=== PATIENT | male | born 1965 | race American Indian/Alaskan Native ===

== ENCOUNTER 2020-06-24 13:27 | Inpatient (IN) | payer MEDICARE ==
--- NOTE | 2020-06-24 13:40 | Emergency Department Report ---
Blank Doc - Documentation Documentation: 55-year-old male past no history hypertension treatment department complaining of onset of left facial weakness and speech difficulty and right hand weakness that started last night around 11 PM and continues at present. No loss of consciousness no syncope no fevers chills or sweats This initial assessment/diagnostic orders/clinical plan/treatment(s) is/are subject to change based on patients health status, clinical progression and re- assessment by fellow clinical providers in the ED. Further treatment and workup at subsequent clinical providers discretion. Patient/guardian urged not to elope from the ED as their condition may be serious if not clinically assessed and managed. Initial orders include: Consulted with the my attending Dr. Bobo Suarez plan will call code stroke
--- NOTE | 2020-06-24 14:05 | Emergency Department Report ---
ED Neuro Deficit HPI - General Chief Complaint: Neuro Symptoms/Deficit Stated Complaint: HBP/MED REFILL Time Seen by Provider: 06/24/20 13:52 Source: patient Mode of arrival: Ambulatory Limitations: No Limitations - History of Present Illness Initial Comments: [facility] Date of Service: 06/24/2020 13:43:24 Impression: I61.0 - Intracerebral hemorrhage in hemisphere, subcortical Comments/Sign-Out: mild right hand weakness - CT head shows L subcortical hemorrhage. Likely from hypertension. Recommend BP <140/90, neurosurgery consult, and stopping all antithrombotics. Metrics: Last Known Well: 06/23/2020 23:00:00 [facility] Notification Time: 06/24/2020 13:42:56 Arrival Time: 06/24/2020 13:27:00 Stamp Time: 06/24/2020 13:43:24 Time First Login Attempt: 06/24/2020 13:50:54 Video Start Time: 06/24/2020 13:50:54 Symptoms: right arm weakness NIHSS Start Assessment Time: 06/24/2020 13:59:15 Patient is not a candidate for Alteplase/Activase. Patient was not deemed candidate for Alteplase/Activase thrombolytics because of Current or Previous ICH. Video End Time: 06/24/2020 14:03:22 CT head was reviewed and results were: L periventricular white matter hemorrhage. Clinical Presentation is not Suggestive of Large Vessel Occlusive Disease ED Physician notified of diagnostic impression and management plan on 06/24/2020 14:03:22 Our recommendations are outlined below. Recommendations: Activate Stroke Protocol Admission/Order Set Stroke/Telemetry Floor Neuro Checks Bedside Swallow Eval DVT Prophylaxis IV Fluids, Normal Saline Head of Bed 30 Degrees Euglycemia and Avoid Hyperthermia (PRN Acetaminophen) Hold Antithrombotics for Now Routine Consultation with Inhouse Neurology for Follow up Care Sign Out: Discussed with Emergency Department Provider History of Present Illness: Patient was brought by private transportation with symptoms of right arm weakness Mr. Posada is a 55 year old man noted that he was dropping things when he woke up this am. He last felt normal at approx 2300 before bed. He endorses taking eliquis. No hx of stroke/KS. No weakness of his right arm. No slurred speech. No vision changes. Past Medical History: Hypertension There is NO history of Coronary Artery Disease There is NO history of Stroke Anticoagulant use: eliquis Antiplatelet use: No Examination: BP(214/120), Pulse(87), Blood Glucose(97) 1A: Level of Consciousness - Alert; keenly responsive + 0 1B: Ask Month and Age - Both Questions Right + 0 1C: Blink Eyes & Squeeze Hands - Performs Both Tasks + 0 2: Test Horizontal Extraocular Movements - Normal + 0 3: Test Visual Napier - No Visual Loss + 0 4: Test Facial Palsy (Use Grimace if Obtunded) - Minor paralysis (flat nasolabial fold, smile asymmetry) + 1 5A: Test Left Arm Motor Drift - No Drift for 10 Seconds + 0 5B: Test Right Arm Motor Drift - No Drift for 10 Seconds + 0 6A: Test Left Leg Motor Drift - No Drift for 5 Seconds + 0 6B: Test Right Leg Motor Drift - No Drift for 5 Seconds + 0 7: Test Limb Ataxia (FNF/Heel-Fischer) - No Ataxia + 0 8: Test Sensation - Normal; No sensory loss + 0 9: Test Language/Aphasia - Normal; No aphasia + 0 10: Test Dysarthria - Normal + 0 11: Test Extinction/Inattention - No abnormality + 0 NIHSS Score: 1 Pre-Morbid Modified Ranking Scale: 0 Points = No symptoms at all Patient/Family was informed the Neurology Consult would happen via TeleHealth consult by way of interactive audio and video telecommunications and consented to receiving care in this manner. Due to the immediate potential for life-threatening deterioration due to underlying acute neurologic illness, I spent 20 minutes providing critical care. This time includes time for face to face visit via telemedicine, review of med ical records, imaging studies and discussion of findings with providers, the patient and/or family. Dr Mairo Nguyen [facility] Case [id number] ED Review of Systems ROS: Stated complaint: HBP/MED REFILL Other details as noted in HPI ED Past Medical Hx - Past Medical History Previous Medical History?: Yes Hx Hypertension: Yes - Surgical History Past Surgical History?: No - Social History Smoking Status: Current Every Day Smoker ED Neuro Physical Exam - General Limitations: No Limitations Suspected Stroke: Yes - NIHSS Assessment Interval: Baseline 1a. Level of Consciousness: alert/keenly responsive 1b. LOC Questions: answers both correctly 1c. LOC Commands: performs tasks correctly 2. Best Gaze: normal 3. Visual: no visual loss 4. Facial Palsy: minor paralysis 5b. Motor Arm Right: no drift 5a. Motor Arm Left: no drift 6a. Motor Leg Left: no drift 6b. Motor Leg Right: no drift 7. Limb Ataxia: absent 8. Sensory: normal 9. Best Language: no aphasia 10. Dysarthria: normal 11. Extinction/Inattention: no abnormality Total Score: 1 Stroke Severity: Minor Stroke ED Course Vital Signs 06/24/20 06/24/20 13:40 14:02 Temperature 98.3 F Pulse Rate 91 H 94 H Respiratory 20 17 Rate Blood Pressure 175/109 Blood Pressure 207/121 [Left] O2 Sat by Pulse 95 Oximetry - Lab Data Lab Results 06/24/20 Range/Units 13:41 POC Glucose 97 (70-105) mg/dL Critical care attestation.: If time is entered above; I have spent that time in minutes in the direct care of this critically ill patient, excluding procedure time. ED Disposition Clinical Impression: Right arm weakness Disposition: OP ADMIT IP TO THIS HOSP Is pt being admited?: Yes Condition: Stable
[2020-06-24] MEDS ORDERED: niCARdipine DRIP 40 MG/200 ML BAG IV ONE (14:13)
[2020-06-24] MEDS ORDERED: levETIRAcetam 1000 MG/NS 0.75% 1,000 MG/100 ML BAG IV ONE (14:13)
--- NOTE | 2020-06-24 14:15 | Cat Scan Report ---
CT HEAD WITHOUT CONTRAST INDICATION / CLINICAL INFORMATION: Code stroke. Right sided weakness, started 11PM TECHNIQUE: All CT scans at this location are performed using CT dose reduction for ALARA by means of automated e xposure control. COMPARISON: None available. FINDINGS: HEMORRHAGE: There is a hyperdense collection in the region of the left basal ganglia/external capsule which measures 2.9 x 1.7 x 2.9 cm in AP, transverse, and craniocaudal dimensions. There is mild surr ounding parenchymal edema. EXTRA-AXIAL SPACES: Normal in size and morphology for the patient's age. VENTRICULAR SYSTEM: Normal in size and morphology for the patient's age. CEREBRAL PARENCHYMA: No significant abnormality. No acute territorial infarct. MIDLINE SHIFT OR HERNIATION: None. CEREBELLUM / BRAINSTEM: No significant abnormality. ORBITS: Normal as visualized. SOFT TISSUES of HEAD: No significant abnormality. CALVARIUM: No significant abnormality. PARANASAL SINUSES / MASTOID AIR CELLS: Normal as visualized. ADDITIONAL FINDINGS: None. IMPRESSION: 1. Acute left basal ganglia/external capsule hemorrhage, likely hypertensive in etiology. Neurology/n eurosurgical consultation is recommended. CRITICAL RESULT: Acute left basal ganglia/external capsule hemorrhage Time of Discovery (TANK CLEANER/CDT): 1:00 PM Time of Communication (TANK CLEANER/CDT): 1:09 PM Licensed Practitioner Receiving Report: HORACIO Nowak Read Back Performed: Yes. Signer Name: Rodrigo Kohler MD Signed: 06/24/2020 2:10 PM Workstation Name: [id number]
--- NOTE | 2020-06-24 14:33 | Emergency Department Report ---
ED Neuro Deficit HPI - General Chief Complaint: Neuro Symptoms/Deficit Stated Complaint: HBP/MED REFILL Time Seen by Provider: 06/24/20 13:52 Source: patient Mode of arrival: Ambulatory Limitations: No Limitations - History of Present Illness Initial Comments: Patient is a 55-year-old F [place] male with a past medical history of hypertension who is presenting with initially need to have his blood pressure medicines refilled. During the initial assessment patient states that he has been having some mild difficulty with finding words since last night approximate 11:00. States that he is dropped several things out of his right hand as well. The MEHNAZ doing the screening exam noticed mild facial droop. Patient states that he ran out of his hydrochlorothiazide approximately 3 weeks ago and called for refill but was told he had no refills left and will need to see a physician. Because physician's office but only spoke with the nurse and was unable to get a refill at that time. Patient denies any chest pain shortness of breath headache nausea vomiting diarrhea. States he is on no blood thinners. - Related Data Allergies/Adverse Reactions: Allergies Allergy/AdvReac Type Severity Reaction Status Date / Time No Known Allergies Allergy Unverified 06/24/20 14:07 ED Review of Systems ROS: Stated complaint: HBP/MED REFILL Other details as noted in HPI Comment: All other systems reviewed and negative ED Past Medical Hx - Past Medical History Previous Medical History?: Yes Hx Hypertension: Yes - Surgical History Past Surgical History?: No - Social History Smoking Status: Current Every Day Smoker ED Neuro Physical Exam - General Limitations: No Limitations General appearance: alert, in no apparent distress Suspected Stroke: Yes - Head Head exam: Present: atraumatic, normocephalic - Eye Eye exam: Present: normal appearance, PERRL, EOMI - ENT ENT exam: Present: mucous membranes moist - Neck Neck exam: Present: normal inspection - Respiratory Respiratory exam: Present: normal lung sounds bilaterally. Absent: respiratory distress, wheezes, rales, rhonchi - Cardiovascular Cardiovascular Exam: Present: regular rate, normal rhythm, normal heart sounds. Absent: irregular rhythm, systolic murmur, diastolic murmur, rubs, gallop - GI/Abdominal GI/Abdominal exam: Present: soft, normal bowel sounds. Absent: distended, tenderness, guarding, rebound - Rectal Rectal exam: Present: deferred - Extremities Exam Extremities exam: Present: normal inspection - Back Exam Back exam: Present: normal inspection - Neurological Exam Neurological exam: Present: alert, oriented X3, normal gait, motor sensory deficit - NIHSS Assessment Interval: Baseline 1a. Level of Consciousness: alert/keenly responsive 1b. LOC Questions: answers both correctly 1c. LOC Commands: performs tasks correctly 2. Best Gaze: normal 3. Visual: no visual loss 4. Facial Palsy: minor paralysis (left) 5b. Motor Arm Right: drift 5a. Motor Arm Left: no drift 6a. Motor Leg Left: no drift 6b. Motor Leg Right: no drift 7. Limb Ataxia: absent 8. Sensory: normal 9. Best Language: mild/moderate aphasia 10. Dysarthria: normal 11. Extinction/Inattention: no abnormality Total Score: 3 Stroke Severity: Minor Stroke - Psychiatric Psychiatric exam: Present: normal affect, normal mood - Skin Skin exam: Present: warm, dry, intact, normal color. Absent: rash ED Course Vital Signs 06/24/20 06/24/20 06/24/20 13:40 14:02 14:09 Temperature 98.3 F Pulse Rate 91 H 94 H Respiratory 20 17 Rate Blood Pressure 175/109 207/121 Blood Pressure 207/121 [Left] O2 Sat by Pulse 95 Oximetry 06/24/20 06/24/20 06/24/20 14:17 14:28 14:32 Temperature Pulse Rate 75 72 70 Respiratory 16 18 11 L Rate Blood Pressure Blood Pressure 143/91 172/107 175/129 [Left] O2 Sat by Pulse 95 96 97 Oximetry 06/24/20 06/24/20 06/24/20 14:34 14:45 15:00 Temperature Pulse Rate 71 70 65 Respiratory 8 L 17 16 Rate Blood Pressure 165/90 165/90 Blood Pressure [Left] O2 Sat by Pulse 96 96 96 Oximetry 06/24/20 15:09 Temperature Pulse Rate 69 Respiratory Rate Blood Pressure Blood Pressure 136/97 [Left] O2 Sat by Pulse Oximetry - Reevaluation(s) Reevaluation #1: 06/24/20 14:[address] Mccain with neurosurgery. He was able to review the CT scan himself. Dr. Carroll states that the patient could be treated here with an blood pressure control. Does not feel as though surgical intervention is needed at this time. We will obtain a 4-hour repeat CT. Patient was to have aggressive blood pressure control to get his blood pressure under 140 systolic. Patient given a gram of Keppra as well. Dr. Carroll states he will see the patient in house today. Dr. Mendez with the ICU has been consulted as well and will see the patient. At this time we are waiting for laboratory studies to be resulted so that patient can be admitted to the hospitalist service. - Lab Data Result diagrams: 06/24/20 14:07 06/24/20 14:14 Lab Results 06/24/20 06/24/20 06/24/20 Range/Units 13:41 14:07 14:07 WBC 6.0 (4.5-11.0) K/mm3 RBC 4.87 (3.65-5.03) M/mm3 Hgb 13.0 (11.8-15.2) gm/dl Hct 40.0 (35.5-45.6) % MCV 82 L (84-94) fl MCH 27 L (28-32) pg MCHC 33 (32-34) % RDW 15.1 (13.2-15.2) % Plt Count 315 (140-440) K/mm3 Lymph % (Auto) 39.1 H (13.4-35.0) % [place] % (Auto) 6.5 (0.0-7.3) % Eos % (Auto) 0.7 (0.0-4.3) % Baso % (Auto) 0.5 (0.0-1.8) % Lymph # (Auto) 2.4 (1.2-5.4) K/mm3 [place] # (Auto) 0.4 (0.0-0.8) K/mm3 Eos # (Auto) 0.0 (0.0-0.4) K/mm3 Baso # (Auto) 0.0 (0.0-0.1) K/mm3 Seg Neutrophils % 53.2 (40.0-70.0) % Seg Neutrophils # 3.2 (1.8-7.7) K/mm3 Sodium (137-145) mmol/L Potassium (3.6-5.0) mmol/L Chloride (98-107) mmol/L Carbon Dioxide (22-30) mmol/L Anion Gap mmol/L BUN (9-20) mg/dL Creatinine (0.8-1.3) mg/dL Estimated GFR ml/min BUN/Creatinine Ratio % Glucose (75-100) mg/dL POC Glucose 97 (70-105) mg/dL Calcium (8.4-10.2) mg/dL Total Bilirubin (0.1-1.2) mg/dL AST (5-40) units/L ALT (7-56) units/L Alkaline Phosphatase (35-129) units/L Total Creatine Kinase 248 H (55-170) units/L CK-MB (CK-2) 3.4 (0.0-4.0) ng/mL CK-MB (CK-2) Rel Index 1.3 (0-4) Troponin T < 0.010 (0.00-0.029) ng/mL Total Protein (6.3-8.2) g/dL Albumin (3.9-5) g/dL Albumin/Globulin Ratio % 12/19/20 Range/Units 14:14 WBC (4.5-11.0) K/mm3 RBC (3.65-5.03) M/mm3 Hgb (11.8-15.2) gm/dl Hct (35.5-45.6) % MCV (84-94) fl MCH (28-32) pg MCHC (32-34) % RDW (13.2-15.2) % Plt Count (140-440) K/mm3 Lymph % (Auto) (13.4-35.0) % [place] % (Auto) (0.0-7.3) % Eos % (Auto) (0.0-4.3) % Baso % (Auto) (0.0-1.8) % Lymph # (Auto) (1.2-5.4) K/mm3 [place] # (Auto) (0.0-0.8) K/mm3 Eos # (Auto) (0.0-0.4) K/mm3 Baso # (Auto) (0.0-0.1) K/mm3 Seg Neutrophils % (40.0-70.0) % Seg Neutrophils # (1.8-7.7) K/mm3 Sodium 137 (137-145) mmol/L Potassium 3.6 (3.6-5.0) mmol/L Chloride 101.7 (98-107) mmol/L Carbon Dioxide 28 (22-30) mmol/L Anion Gap 11 mmol/L BUN 11 (9-20) mg/dL Creatinine 1.3 (0.8-1.3) mg/dL Estimated GFR 58 ml/min BUN/Creatinine Ratio 8 % Glucose 102 H (75-100) mg/dL POC Glucose (70-105) mg/dL Calcium 9.3 (8.4-10.2) mg/dL Total Bilirubin 0.40 (0.1-1.2) mg/dL AST 18 (5-40) units/L ALT 20 (7-56) units/L Alkaline Phosphatase 39 (35-129) units/L Total Creatine Kinase (55-170) units/L CK-MB (CK-2) (0.0-4.0) ng/mL CK-MB (CK-2) Rel Index (0-4) Troponin T (0.00-0.029) ng/mL Total Protein 8.1 (6.3-8.2) g/dL Albumin 4.1 (3.9-5) g/dL Albumin/Globulin Ratio 1.0 % - EKG Data -: EKG Interpreted by Ia EKG shows normal: sinus rhythm, axis, intervals, QRS complexes, ST-T waves Rate: normal Interpretation: [facility] - Radiology Data CT HEAD WITHOUT CONTRAST INDICATION / CLINICAL INFORMATION: Code stroke. Right sided weakness, started 11PM TECHNIQUE: All CT scans at this location are performed using CT dose reduction for ALARA by means of automated exposure control. COMPARISON: None available. FINDINGS: HEMORRHAGE: There is a hyperdense collection in the region of the left basal ganglia/external capsule which measures 2.9 x 1.7 x 2.9 cm in AP, transverse, and craniocaudal dimensions. There is mild surrounding parenchymal edema. EXTRA-AXIAL SPACES: Normal in size and morphology for the patient's age. VENTRICULAR SYSTEM: Normal in size and morphology for the patient's age. CEREBRAL PARENCHYMA: No significant abnormality. No acute territorial infarct. MIDLINE SHIFT OR HERNIATION: None. CEREBELLUM / BRAINSTEM: No significant abnormality. ORBITS: Normal as visualized. SOFT TISSUES of HEAD: No significant abnormality. CALVARIUM: No significant abnormality. PARANASAL SINUSES / MASTOID AIR CELLS: Normal as visualized. ADDITIONAL FINDINGS: None. IMPRESSION: 1. Acute left basal ganglia/external capsule hemorrhage, likely hypertensive in etiology. Neurology/neurosurgical consultation is recommended. CRITICAL RESULT: Acute left basal ganglia/external capsule hemorrhage Time of Discovery (ANESTHESIA TECH/CDT): 1:00 PM Time of Communication (ANESTHESIA TECH/CDT): 1:09 PM Licensed Practitioner Receiving Report: HORACIO Nowak Read Back Performed: Yes. Signer Name: Rodrigo Kohler MD Signed: 06/24/2020 2:10 PM Workstation Name: [id number] Critical Care Time: Yes (3.) Critical care attestation.: If time is entered above; I have spent that time in minutes in the direct care of this critically ill patient, excluding procedure time. ED Disposition Clinical Impression: Right arm weakness, Basal ganglia hemorrhage, Hypertensive emergency Disposition: DC-09 OP ADMIT IP TO THIS HOSP Is pt being admited?: Yes Does the pt Need Aspirin: No Condition: Critical Instructions: Hypertension (ED) Time of Disposition: 15:12
[2020-06-24 14:34] LABS: Basophils % (Auto) 0.5 % (0.0-1.8); Eosinophils % (Auto) 0.7 % (0.0-4.3); Lymphocytes # (Auto) 2.4 K/mm3 (1.2-5.4); Lymphocytes % (Auto) 39.1 % (13.4-35.0); Mean Corpuscular HGB Conc 33 % (32-34); Mean Corpuscular Volume 82 fl (84-94); Monocytes # (Auto) 0.4 K/mm3 (0.0-0.8); Monocytes % (Auto) 6.5 % (0.0-7.3); Platelet Count 315 K/mm3 (140-440); Red Blood Count 4.87 M/mm3 (3.65-5.03); Red Cell Distribution Width 15.1 % (13.2-15.2)
--- NOTE | 2020-06-24 14:54 | XRay Report ---
CHEST 1 VIEW 06/24/2020 1:42 PM INDICATION / CLINICAL INFORMATION: hypertensive emergency. COMPARISON: None available. FINDINGS: SUPPORT DEVICES: None. HEART / MEDIASTINUM: Borderline cardiomegaly. LUNGS / PLEURA: No significant pulmonary or pleural abnormality. No pneumothorax. ADDITIONAL FINDINGS: No significant additional findings. IMPRESSION: No acute cardiopulmonary abnormality. Borderline cardiomegaly. Signer Name: Rodrigo Kohler MD Signed: 06/24/2020 2:49 PM Workstation Name: [id number]
[2020-06-24 15:00] LABS: Creatine Kinase MB 3.4 ng/mL (0.0-4.0)
[2020-06-24 15:02] LABS: Albumin 4.1 g/dL (3.9-5); Calcium 9.3 mg/dL (8.4-10.2)
[2020-06-24 15:10] LABS: INR 0.95 (0.87-1.13)
[2020-06-24 15:12] LABS: Partial Thromboplastin Time 27.3 Sec. (24.2-36.6); Thrombin Time 16.6 Sec. (15.1-19.6)
--- NOTE | 2020-06-24 18:23 | Cat Scan Report ---
CT head/brain wo con INDICATION: Intracranial hemorrhage. TECHNIQUE: CT head without contrast. All CT scans at this location are performed using CT dose reduction for ALA RA by means of automated exposure control. COMPARISON: Head CT done earlier on 06/24/2020 FINDINGS: There has been no appreciable change in the 2.9 cm left putaminal hemorrhage since the prior study wi th surrounding edema. There is unchanged mild local mass effect with effacement of the left lateral v entricle but no significant midline shift or herniation. There is no other acute abnormality. IMPRESSION: 1. Unchanged left putaminal hemorrhage. Signer Name: Trevor Schwarz MD Signed: 06/24/2020 6:18 PM Workstation Name: [id number]
--- NOTE | 2020-06-24 23:25 | History and Physical Report ---
History of Present Illness Date of examination: 06/24/20 Date of admission: 06/24/20 15:15 Chief complaint: Right hand weakness History of present illness: 55-year-old -Malawian male with past 5 history of hypertension and noncompliant with medication comes to the emergency room for filling up the blood pressure medications. During the examination by ED physician-it was noticed that there is a mild facial droop and was dropping several things of out of the right hand. Because of suspicion of stroke or CAT scan was done which showed a very small bleed. Patient blood pressure was also very high in the 220s by 120s. Patient was started on nicardipine drip. - Past Medical History Previous Medical History?: Yes --Hypertension: Yes - Surgical History Past Surgical History?: No - Social History Smoking Status: Current Every Day Smoker Family history Htn Review of Systems ROS: Stated complaint: HBP/MED REFILL Right facial weakness Right upper extremity weakness Otherwise review of systems was normal No headache Medications and Allergies Allergies Allergy/AdvReac Type Severity Reaction Status Date / Time No Known Allergies Allergy Verified 06/24/20 23:42 Exam - Constitutional Vitals: Temp Pulse Resp BP Pulse Ox 98.3 F 64 16 173/101 98 06/24/20 13:40 06/24/20 22:30 06/24/20 22:30 06/24/20 22:30 06/24/20 22:30 General appearance: Present: no acute distress, well-nourished - EENT Eyes: Present: PERRL ENT: hearing intact, clear oral mucosa - Neck Neck: Present: supple, normal ROM - Respiratory Respiratory effort: normal Respiratory: bilateral: CTA - Cardiovascular Heart rate: 78 Rhythm: regular Heart Sounds: Present: S1 & S2. Absent: rub, click - Extremities Extremities: no ischemia, pulses intact, pulses symmetrical, No edema Extremity abnormal: other (Slight weakness in the right hand) Peripheral Pulses: within normal limits - Abdominal General gastrointestinal: Present: soft, non-tender, non-distended, normal bowel sounds Male genitourinary: Present: normal - Rectal Rectal Exam: deferred - Integumentary Integumentary: Present: clear, warm, dry - Musculoskeletal Musculoskeletal: right sided weakness (Right hand weakness present. Power is 4 x 5 in the right upper extremity.) - Psychiatric Psychiatric: appropriate mood/affect, intact judgment & insight - Neurologic Neurologic: CNII-XII intact (Right facial droop), moves all extremities - Allied Health Allied health notes reviewed: nursing, case management HEART Score - HEART Score Troponin: Troponin T < 0.010 ng/mL (0.00-0.029) 06/24/20 14:07 Results - Labs CBC & Chem 7: 06/24/20 23:41 06/24/20 23:41 Labs: Laboratory Last Values WBC 6.0 K/mm3 (4.5-11.0) 06/24/20 14:07 RBC 4.87 M/mm3 (3.65-5.03) 06/24/20 14:07 Hgb 13.0 gm/dl (11.8-15.2) 06/24/20 14:07 Hct 40.0 % (35.5-45.6) 06/24/20 14:07 MCV 82 fl (84-94) L 06/24/20 14:07 MCH 27 pg (28-32) L 06/24/20 14:07 MCHC 33 % (32-34) 06/24/20 14:07 RDW 15.1 % (13.2-15.2) 06/24/20 14:07 Plt Count 315 K/mm3 (140-440) 06/24/20 14:07 Lymph % (Auto) 39.1 % (13.4-35.0) H 06/24/20 14:07 [place] % (Auto) 6.5 % (0.0-7.3) 06/24/20 14:07 Eos % (Auto) 0.7 % (0.0-4.3) 06/24/20 14:07 Baso % (Auto) 0.5 % (0.0-1.8) 06/24/20 14:07 Lymph # (Auto) 2.4 K/mm3 (1.2-5.4) 06/24/20 14:07 [place] # (Auto) 0.4 K/mm3 (0.0-0.8) 06/24/20 14:07 Eos # (Auto) 0.0 K/mm3 (0.0-0.4) 06/24/20 14:07 Baso # (Auto) 0.0 K/mm3 (0.0-0.1) 06/24/20 14:07 Seg Neutrophils % 53.2 % (40.0-70.0) 06/24/20 14:07 Seg Neutrophils # 3.2 K/mm3 (1.8-7.7) 06/24/20 14:07 PT 12.5 Sec. (12.2-14.9) 06/24/20 14:07 INR 0.95 (0.87-1.13) 06/24/20 14:07 APTT 27.3 Sec. (24.2-36.6) 06/24/20 14:07 Thrombin Time 16.6 Sec. (15.1-19.6) 06/24/20 14:07 Sodium 137 mmol/L (137-145) 06/24/20 14:14 Potassium 3.6 mmol/L (3.6-5.0) 06/24/20 14:14 Chloride 101.7 mmol/L (98-107) 06/24/20 14:14 Carbon Dioxide 28 mmol/L (22-30) 06/24/20 14:14 Anion Gap 11 mmol/L 06/24/20 14:14 BUN 11 mg/dL (9-20) 06/24/20 14:14 Creatinine 1.3 mg/dL (0.8-1.3) 06/24/20 14:14 Estimated GFR 58 ml/min 06/24/20 14:14 BUN/Creatinine Ratio 8 % 06/24/20 14:14 Glucose 102 mg/dL (75-100) H 06/24/20 14:14 POC Glucose 97 mg/dL (70-105) 06/24/20 13:41 Calcium 9.3 mg/dL (8.4-10.2) 06/24/20 14:14 Total Bilirubin 0.40 mg/dL (0.1-1.2) 06/24/20 14:14 AST 18 units/L (5-40) 06/24/20 14:14 ALT 20 units/L (7-56) 06/24/20 14:14 Alkaline Phosphatase 39 units/L (35-129) 06/24/20 14:14 Total Creatine Kinase 248 units/L (55-170) H 06/24/20 14:07 CK-MB (CK-2) 3.4 ng/mL (0.0-4.0) 06/24/20 14:07 CK-MB (CK-2) Rel Index 1.3 (0-4) 06/24/20 14:07 Troponin T < 0.010 ng/mL (0.00-0.029) 06/24/20 14:07 Total Protein 8.1 g/dL (6.3-8.2) 06/24/20 14:14 Albumin 4.1 g/dL (3.9-5) 06/24/20 14:14 Albumin/Globulin Ratio 1.0 % 06/24/20 14:14 Short CBC 06/24/20 06/24/20 Range/Units 14:07 23:41 WBC 6.0 5.8 (4.5-11.0) K/mm3 Hgb 13.0 12.5 (11.8-15.2) gm/dl Hct 40.0 38.3 (35.5-45.6) % Plt Count 315 308 (140-440) K/mm3 BMP 06/24/20 06/24/20 14:14 23:41 Sodium 137 135 L Potassium 3.6 4.2 Chloride 101.7 100.0 Carbon Dioxide 28 27 BUN 11 10 Creatinine 1.3 1.2 Glucose 102 H 95 Calcium 9.3 9.4 Cardiac Enzymes 06/24/20 Range/Units 14:07 Total Creatine Kinase 248 H (55-170) units/L CK-MB (CK-2) 3.4 (0.0-4.0) ng/mL Troponin T < 0.010 (0.00-0.029) ng/mL Liver Function 06/24/20 06/24/20 Range/Units 14:14 23:41 Total Bilirubin 0.40 0.40 (0.1-1.2) mg/dL AST 18 17 (5-40) units/L ALT 20 19 (7-56) units/L Alkaline Phosphatase 39 37 (35-129) units/L Albumin 4.1 4.1 (3.9-5) g/dL - Imaging and Cardiology Chest x-ray: report reviewed CT Scan - head: report reviewed Imaging and Cardiology: Head CT Acute left basal ganglia/external capsule hemorrhage likely hypertensive in etiology. Neurology/neurosurgical consultation is recommended. Hyperdense collection in the region of the left basal ganglia/external capsule which measures 2.9 X1.7X 2.9 cm in AP transverse and Craniocaudal dimensions. There is mild surrounding parenchymal edema. Chest x-ray no acute cardiopulmonary abnormality. [place]/IV: IV Catheter Type [Right INT / Saline Lock Antecubital] Assessment and Plan Assessment and plan: Critical care statement The high probability OF a clinically significant sudden or life-threatening deterioration of the cardiorespiratory system and endocrine system required my full and direct attention, intervention and postoperative management. The aggregate critical care time was 40 minutes. The time is in addition to time spent performing reported procedures but includes the followin: Data review and interpretation 2: Patient assessment and monitoring of vital signs 3: Documentation 4:: Medication orders and management Advance Directives: Yes (Full code) VTE prophylaxis?: Chemical Plan of care discussed with patient/family: Yes - Patient Problems (1) Basal ganglia hemorrhage Current Visit: Yes Status: Acute Plan to address problem: Conservative treatment for the time being Neurosurgery consult requested ED physician consulted neurosurgery--hence patient being admitted here and was not transferred Small hemorrhage-should do well with control of blood pressure (2) Hypertensive emergency Current Visit: Yes Status: Acute Plan to address problem: Patient on nicardipine drip Patient started on valsartan 1 6212, Coreg 12.5 every 12 and amlodipine 10 mg once a day We will try to wean the nicardipine drip. (3) Right arm weakness Current Visit: Yes Status: Acute Plan to address problem: Secondary to left basal ganglia hemorrhage Will get in-house neurology consult again (4) Acute CVA (cerebrovascular accident) Current Visit: Yes Status: Acute Plan to address problem: Stroke protocol Neuro consult (5) Nicotine dependence Current Visit: Yes Status: Chronic Qualifiers: Nicotine product type: cigarettes Plan to address problem: NicoDerm patch applied Patient counseled about stopping smoking (6) DVT prophylaxis Current Visit: Yes Status: Acute Plan to address problem: Only SCDs and GI prophylaxis No heparin or Lovenox
[2020-06-24] MEDS ORDERED: METOCLOPRAMIDE 10 MG/2 ML INJ IV PRN (23:27)
[2020-06-24] MEDS ORDERED: MORPHINE 2 MG/1 ML INJ IV PRN (23:27)
[2020-06-24] MEDS ORDERED: ONDANSETRON 4 MG/2 ML INJ IV PRN (23:27)
[2020-06-24] MEDS ORDERED: oxyCODONE /ACETAMINOPHEN 5-325MG TAB PO PRN (23:27)
[2020-06-25 00:35] LABS: Alanine Aminotransferase 19 units/L (7-56); Albumin 4.1 g/dL (3.9-5); BUN/Creatinine Ratio 8; Basophils % (Auto) 0.4 % (0.0-1.8); Blood Urea Nitrogen 10 mg/dL (9-20); Calcium 9.4 mg/dL (8.4-10.2); Eosinophils % (Auto) 0.7 % (0.0-4.3); Hematocrit 38.3 % (35.5-45.6); Hemoglobin 12.5 gm/dl (11.8-15.2); Hemolysis Index 2; Lymphocytes # (Auto) 2.4 K/mm3 (1.2-5.4); Lymphocytes % (Auto) 42.3 % (13.4-35.0); Mean Corpuscular HGB Conc 33 % (32-34); Mean Corpuscular Volume 82 fl (84-94); Monocytes # (Auto) 0.4 K/mm3 (0.0-0.8); Monocytes % (Auto) 6.7 % (0.0-7.3); Platelet Count 308 K/mm3 (140-440); Red Cell Distribution Width 14.9 % (13.2-15.2)
[2020-06-25] MEDS ORDERED: MAGNESIUM HYDROXIDE (MOM) ORAL LIQD UDC PO PRN (00:54)
[2020-06-25] MEDS ORDERED: METOCLOPRAMIDE 10 MG TAB PO PRN (00:54)
[2020-06-25] MEDS ORDERED: PROMETHAZINE 25 MG RECT SUPP PR PRN (00:54)
[2020-06-25] MEDS ORDERED: ONDANSETRON 4 MG/2 ML INJ IV PRN (00:54)
[2020-06-25] MEDS ORDERED: ACETAMINOPHEN 325 MG TAB PO PRN (00:54)
[2020-06-25] MEDS ORDERED: oxyCODONE /ACETAMINOPHEN 5-325MG TAB PO PRN (00:54)
[2020-06-25] MEDS ORDERED: HYDROmorphone 1 MG/1 ML INJ IV PRN (00:54)
[2020-06-25] MEDS: VALSARTAN 160MG TAB PO SCH ×4 (02:16→21:34)
[2020-06-25] MEDS: amLODIPine 10 MG TAB PO SCH ×3 (02:17→20:34)
[2020-06-25] MEDS: carvediloL 12.5 MG TAB PO SCH ×4 (07:48→21:28)
--- NOTE | 2020-06-25 09:57 | Consultation ---
History of Present Illness Consult date: 06/25/20 Requesting physician: LARA CASTRO Reason for Consult: Intracerebral hemorrhage Chief complaint: R sided weakness History of present illness: 55 y/o M w/ history of hypertension, poor medical compliance, presented to [facility] on yesterday to refill his bp medications. During this process, he was noted to have a right facial droop and right hemiparesis. CT head was performed, which demonstrated a 3 cm left putaminal hemorrhage. There is no appreciable mass effect or IVH. Presently, Mr. Posada denies significant headache, nausea, or vomiting. He reports significant improvement in his right sided weakness. He is currently on ICU hold. Past History Past Medical History: hypertension Family history: no significant family history Medications and Allergies Allergies Allergy/AdvReac Type Severity Reaction Status Date / Time No Known Allergies Allergy Verified 06/24/20 23:42 Active Meds: Active Medications Acetaminophen (Acetaminophen 325 Mg Tab) 650 mg PO Q4H PRN PRN Reason: Pain, Mild (1-3) Amlodipine Besylate (Amlodipine 10 Mg Tab) 10 mg PO QDAY [facility] Last Admin: 06/25/20 02:17 Dose: 10 mg Documented by: Atorvastatin Calcium (Atorvastatin 40 Mg Tab) 40 mg PO QHS [facility] Bisacodyl (Bisacodyl 10 Mg Rect Supp) 10 mg [place] QDAY PRN PRN Reason: Constipation Carvedilol (Carvedilol 12.5 Mg Tab) 12.5 mg PO BID [facility] Last Admin: 06/25/20 07:48 Dose: Not Given Documented by: Famotidine (Famotidine 20 Mg/2 Ml Inj) 20 mg IV BID [facility] Hydromorphone HCl (Hydromorphone 1 Mg/1 Ml Inj) 0.5 mg IV Q3H PRN PRN Reason: Pain , Severe (7-10) Magnesium Hydroxide (Magnesium Hydroxide (Mom) Oral Liqd Udc) 30 ml PO Q4H PRN PRN Reason: Constipation Metoclopramide HCl (Metoclopramide 10 Mg/2 Ml Inj) 10 mg IV Q6H PRN PRN Reason: Nausea And Vomiting Metoclopramide HCl (Metoclopramide 10 Mg Tab) 10 mg PO Q6H PRN PRN Reason: Nausea And Vomiting Morphine Sulfate (Morphine 2 Mg/1 Ml Inj) 2 mg IV Q4H PRN PRN Reason: Pain, Moderate (4-6) Nicotine (Nicotine 14 Mg/24 Hr Patch) 14 mg TD QDAY [facility] Ondansetron HCl (Ondansetron 4 Mg/2 Ml Inj) 4 mg IV Q8H PRN PRN Reason: Nausea And Vomiting Oxycodone/Acetaminophen (Oxycodone /Acetaminophen 5-325mg Tab) 1 tab PO Q6H PRN PRN Reason: Pain, Moderate (4-6) Promethazine HCl (Promethazine 25 Mg Rect Supp) 25 mg [place] Q6H PRN PRN Reason: Nausea And Vomiting Sodium Chloride (Sodium Chloride 0.9% 10 Ml Flush Syringe) 10 ml IV BID [facility] Sodium Chloride (Sodium Chloride 0.9% 10 Ml Flush Syringe) 10 ml IV PRN PRN PRN Reason: LINE FLUSH Valsartan (Valsartan 160mg Tab) 160 mg PO BID [facility] Last Admin: 06/25/20 02:16 Dose: 160 mg Documented by: Review of Systems All systems: negative (what is noted in HPI) Physical Examination - Vital Signs Vital Signs: Vital Signs Temp Pulse Resp BP Pulse Ox 98.3 F 91 H 20 175/109 95 06/24/20 13:40 06/24/20 13:40 06/24/20 13:40 06/24/20 13:40 06/24/20 13:40 - Physical Exam Narrative exam: seen and examined no acute distress NC/AT RRR breathing non-labored abdomen soft no cyanosis or clubbing A&Ox3 CNII-XII intact subtle R facial droop motor strength notable for R hemiparesis 4/5 sensation intact to light touch R pronator drift Results - Laboratory Findings CBC and BMP: 06/24/20 23:41 06/24/20 23:41 Abnormal Lab Findings: Abnormal Labs 06/24/20 06/24/20 06/24/20 14:07 14:07 14:14 MCV 82 L MCH 27 L Lymph % (Auto) 39.1 H Sodium Glucose 102 H Total Creatine Kinase 248 H 06/24/20 06/24/20 23:41 23:41 MCV 82 L MCH 27 L Lymph % (Auto) 42.3 H Sodium 135 L Glucose Total Creatine Kinase Assessment and Plan 55 y/o M w/ hypertensive L putaminal hemorrhage -strict BP control < 140 at all times (bp was 157/94 in room this morning) -please obtain CTA head and neck to rule out any vascular abnormality -may transfer to the floor, q4h neuro checks -cont keppra 500 mg BID -recommend neurology consult tomorrow for coordination of follow up care -please ensure patient is started on statin -recommend PT/OT -case management for disposition
[2020-06-25] MEDS ORDERED: amLODIPine 10 MG TAB PO SCH (10:00)
--- NOTE | 2020-06-25 11:52 | Consultation ---
History of Present Illness - Reason for Consult Consult date: 06/25/20 Hypertensive Emergency Requesting physician: LARA CASTRO - History of Present Illness 55 y/o male with known HTN off meds admitted with bleed. Patient presented to ED to have blood pressure medications refilled. While in ED described several neurologic issues that were concerning so CT of head obtained. Putaminal Hemorrhage was noted. Neurosurgery saw patient and evaluated. Recommended ke eping systolics less than 140. Per ED doc, patient was started on cardene drip but this is off this am. Last recorded blood pressure was 151/93. Past History Past Medical History: hypertension Family history: no significant family history Medications and Allergies Allergies Allergy/AdvReac Type Severity Reaction Status Date / Time No Known Allergies Allergy Verified 06/24/20 23:42 Active Meds: Active Medications Acetaminophen (Acetaminophen 325 Mg Tab) 650 mg PO Q4H PRN PRN Reason: Pain, Mild (1-3) Amlodipine Besylate (Amlodipine 10 Mg Tab) 10 mg PO QDAY [facility] Last Admin: 06/25/20 02:17 Dose: 10 mg Documented by: Atorvastatin Calcium (Atorvastatin 40 Mg Tab) 40 mg PO QHS [facility] Bisacodyl (Bisacodyl 10 Mg Rect Supp) 10 mg [place] QDAY PRN PRN Reason: Constipation Carvedilol (Carvedilol 12.5 Mg Tab) 12.5 mg PO BID [facility] Last Admin: 06/25/20 07:48 Dose: Not Given Documented by: Famotidine (Famotidine 20 Mg/2 Ml Inj) 20 mg IV BID [facility] Hydromorphone HCl (Hydromorphone 1 Mg/1 Ml Inj) 0.5 mg IV Q3H PRN PRN Reason: Pain , Severe (7-10) Magnesium Hydroxide (Magnesium Hydroxide (Mom) Oral Liqd Udc) 30 ml PO Q4H PRN PRN Reason: Constipation Metoclopramide HCl (Metoclopramide 10 Mg/2 Ml Inj) 10 mg IV Q6H PRN PRN Reason: Nausea And Vomiting Metoclopramide HCl (Metoclopramide 10 Mg Tab) 10 mg PO Q6H PRN PRN Reason: Nausea And Vomiting Morphine Sulfate (Morphine 2 Mg/1 Ml Inj) 2 mg IV Q4H PRN PRN Reason: Pain, Moderate (4-6) Nicotine (Nicotine 14 Mg/24 Hr Patch) 14 mg TD QDAY [facility] Ondansetron HCl (Ondansetron 4 Mg/2 Ml Inj) 4 mg IV Q8H PRN PRN Reason: Nausea And Vomiting Oxycodone/Acetaminophen (Oxycodone /Acetaminophen 5-325mg Tab) 1 tab PO Q6H PRN PRN Reason: Pain, Moderate (4-6) Promethazine HCl (Promethazine 25 Mg Rect Supp) 25 mg [place] Q6H PRN PRN Reason: Nausea And Vomiting Sodium Chloride (Sodium Chloride 0.9% 10 Ml Flush Syringe) 10 ml IV BID [facility] Sodium Chloride (Sodium Chloride 0.9% 10 Ml Flush Syringe) 10 ml IV PRN PRN PRN Reason: LINE FLUSH Valsartan (Valsartan 160mg Tab) 160 mg PO BID [facility] Last Admin: 06/25/20 02:16 Dose: 160 mg Documented by: Exam - Constitutional Vitals: Temp Pulse Resp BP Pulse Ox 98.3 F 73 15 151/93 93 06/24/20 13:40 06/25/20 10:31 06/25/20 10:31 06/25/20 10:31 06/25/20 10:31 Results - Labs CBC & Chem 7: 06/24/20 23:41 06/24/20 23:41 Labs: Abnormal lab results 06/24/20 06/24/20 06/24/20 Range/Units 14:07 14:07 14:14 MCV 82 L (84-94) fl MCH 27 L (28-32) pg Lymph % (Auto) 39.1 H (13.4-35.0) % Sodium (137-145) mmol/L Glucose 102 H (75-100) mg/dL Total Creatine Kinase 248 H (55-170) units/L 06/24/20 06/24/20 Range/Units 23:41 23:41 MCV 82 L (84-94) fl MCH 27 L (28-32) pg Lymph % (Auto) 42.3 H (13.4-35.0) % Sodium 135 L (137-145) mmol/L Glucose (75-100) mg/dL Total Creatine Kinase (55-170) units/L - Imaging and Cardiology CT Scan - head: report reviewed Assessment and Plan 55 y/o male with hypertensive emergency resulting in putaminal hemorrhage 1. Agree with neurosurgery in regards to blood pressure. BB was held this am not sure why. Has room to increase this drug. Would also consider diuretic therapy as well as hydralazine scheduled vs PRN. I also agree with neuro that he could go to floor, but would suggest giving PO meds and watching prior to transfer to ensure he does not need cardene drip as ICU beds are limited at this time.
--- NOTE | 2020-06-25 12:07 | Progress Note ---
Assessment and Plan - Patient Problems (1) Acute CVA (cerebrovascular accident) Current Visit: Yes Status: Acute Plan to address problem: CT head results reviewed. Right arm weakness resolved Motor power in all extremities 5/5 Continue high intensity statin Neurology consult placed but will be seen tomorrow Telemetry Neurochecks For MRA/MRI of brain Echo results reviewed EF greater than 55% (2) Medical non-compliance Current Visit: Yes Status: Chronic Plan to address problem: Stressed the importance of compliance with medications (3) Basal ganglia hemorrhage Current Visit: Yes Status: Acute Plan to address problem: Monitor over next 24 hours Await neurology consult Neurosurgery note reviewed He has ordered CTA of head and neck No mass-effect Continue seizure prophylaxis with Keppra (4) Hypertensive emergency Current Visit: Yes Status: Acute Plan to address problem: Improved blood pressure at the time of my evaluation was 130/86 Continue present medications Patient has been of Cardene drip for more than 5 hours per discussion with RN Stable for transfer to telemetry floor (5) Nicotine dependence Current Visit: Yes Status: Chronic Qualifiers: Nicotine product type: cigarettes Plan to address problem: Smoking cessation counseling was done Continue nicotine patch Subjective Date of service: 06/25/20 Interval history: 55-year-old -Turkish male with past 5 history of hypertension and noncompliant with medication comes to the emergency room for filling up the blood pressure medications. During the examination by ED physician-it was noticed that there is a mild facial droop and was dropping several things of out of the right hand. Because of suspicion of stroke or CAT scan was done which showed a very small bleed. Patient blood pressure was also very high in the 220s by 120s. Patient was started on nicardipine drip. 06/25 patient is resting in the bed, alert and oriented, no apparent distress and he offers no specific complaints, he denies any headaches or dizziness, denies chest pain or shortness of breath, lab results, neurosurgery note reviewed. CT head results reviewed. Motor power in all extremities appears to be normal at this time. He is off Cardene drip for the past 5 hours. BP well controlled. Patient is stable for transfer to telemetry floor Objective - Constitutional Vitals: Vital Signs - 12hr 06/25/20 06/25/20 06/25/20 00:30 01:00 01:30 Pulse Rate 66 72 88 Respiratory 16 15 20 Rate Blood Pressure 166/91 163/92 171/94 Blood Pressure [Left] O2 Sat by Pulse 96 95 98 Oximetry 06/25/20 06/25/20 06/25/20 02:09 02:30 05:23 Pulse Rate 85 77 Respiratory 17 19 Rate Blood Pressure 158/98 158/98 158/98 Blood Pressure [Left] O2 Sat by Pulse 96 93 95 Oximetry 06/25/20 06/25/20 06/25/20 05:30 06:00 06:30 Pulse Rate 67 67 66 Respiratory 15 15 15 Rate Blood Pressure 145/92 130/72 125/76 Blood Pressure [Left] O2 Sat by Pulse 95 94 94 Oximetry 06/25/20 06/25/20 06/25/20 07:00 07:30 08:01 Pulse Rate 65 71 71 Respiratory 14 14 19 Rate Blood Pressure 129/71 143/76 154/95 Blood Pressure [Left] O2 Sat by Pulse 96 97 93 Oximetry 06/25/20 06/25/20 06/25/20 08:30 09:01 09:05 Pulse Rate 73 73 74 Respiratory 18 20 17 Rate Blood Pressure 156/92 197/118 Blood Pressure 157/90 [Left] O2 Sat by Pulse 96 92 96 Oximetry 06/25/20 06/25/20 06/25/20 09:31 10:00 10:31 Pulse Rate 93 H 79 73 Respiratory 17 19 15 Rate Blood Pressure 157/90 151/93 151/93 Blood Pressure [Left] O2 Sat by Pulse 94 94 93 Oximetry General appearance: Present: no acute distress - EENT Eyes: PERRL, EOM intact ENT: hearing intact, clear oral mucosa - Neck Neck: supple, normal ROM - Respiratory Respiratory effort: normal Respiratory: bilateral: CTA - Cardiovascular Rhythm: regular Heart Sounds: Present: S1 & S2 Extremities: No edema - Gastrointestinal General gastrointestinal: Present: soft, non-tender Rectal Exam: deferred - Genitourinary Male genitourinary: deferred - Integumentary Integumentary: clear - Musculoskeletal Musculoskeletal: strength equal bilaterally - Neurologic Neurologic: no focal deficits - Psychiatric Psychiatric: appropriate mood/affect - Labs CBC & Chem 7: 06/24/20 23:41 06/24/20 23:41 Labs: Abnormal lab results 06/24/20 06/24/20 06/24/20 Range/Units 14:07 14:07 14:14 MCV 82 L (84-94) fl MCH 27 L (28-32) pg Lymph % (Auto) 39.1 H (13.4-35.0) % Sodium (137-145) mmol/L Glucose 102 H (75-100) mg/dL Total Creatine Kinase 248 H (55-170) units/L 06/24/20 06/24/20 Range/Units 23:41 23:41 MCV 82 L (84-94) fl MCH 27 L (28-32) pg Lymph % (Auto) 42.3 H (13.4-35.0) % Sodium 135 L (137-145) mmol/L Glucose (75-100) mg/dL Total Creatine Kinase (55-170) units/L HEART Score - HEART Score Troponin: Troponin T < 0.010 ng/mL (0.00-0.029) 06/24/20 14:07
[2020-06-25] MEDS: NICOTINE 14 MG/24 HR PATCH TD SCH (12:55)
[2020-06-25] MEDS: FAMOTIDINE 20 MG/2 ML INJ IV SCH ×2 (12:56→21:29)
--- NOTE | 2020-06-25 16:16 | Magnetic Resonance Report ---
MRI BRAIN WITHOUT CONTRAST, MRA HEAD WITHOUT CONTRAST INDICATION / CLINICAL INFORMATION: stroke. Intracranial hemorrhage TECHNIQUE: Multiplanar, multi sequential MRI images of the brain. Routine MRA of the head is performed. 3-D/MIP reformats postprocessed. Percentage stenosis is determined by direct quantitative measurements of di stal internal carotid artery diameter compared with normal reference segments or by criteria similar to NASCET where applicable. COMPARISON: None available. FINDINGS: MR BRAIN: BRAIN / INTRACRANIAL CONTENTS: There has been no appreciable change in size of the previously demonst rated left putaminal hemorrhage, measuring about 2.9 cm in greatest dimension. There are acute and johnson bacute blood products in the area of hemorrhage. There is unchanged adjacent brain edema without sign ificant midline shift or herniation. There is no other acute intracranial abnormality. CRANIOCERVICAL JUNCTION: No significant abnormality. VASCULAR FLOW-VOIDS: No significant abnormality. ORBITS: No significant abnormality of visualized orbits. SINUSES / MASTOIDS: No significant abnormality of visualized sinuses and mastoid air cells. ADDITIONAL FINDINGS: None. MRA HEAD: Intracranial vertebral arteries: No significant abnormality. Basilar artery: No significant abnormality. Posterior cerebral arteries: No significant abnormality. Intracranial internal carotid arteries: No significant abnormality. Anterior cerebral arteries: No significant abnormality. Middle cerebral arteries: No significant abnormality. Additional findings: None. IMPRESSION: 1. Unchanged left putaminal hemorrhage. 2. No significant stenosis or large vessel occlusion in the intracranial arteries. No aneurysms. Signer Name: Trevro Schwarz MD Signed: 06/25/2020 4:12 PM Workstation Name: [id number]
[2020-06-25] MEDS: levETIRAcetam 500 MG TAB PO SCH (21:28)
[2020-06-26 05:57] LABS: Hematocrit 41.3 % (35.5-45.6); Hemoglobin 13.3 gm/dl (11.8-15.2); Mean Corpuscular HGB Conc 32 % (32-34); Mean Corpuscular Volume 83 fl (84-94); Platelet Count 327 K/mm3 (140-440); Red Blood Count 4.98 M/mm3 (3.65-5.03)
[2020-06-26 06:20] LABS: BUN/Creatinine Ratio 10; Blood Urea Nitrogen 13 mg/dL (9-20); Calcium 9.7 mg/dL (8.4-10.2); Chol/HDL Ratio 4.58 %; Hemolysis Index 3
[2020-06-26] MEDS: amLODIPine 10 MG TAB PO SCH (09:13)
[2020-06-26] MEDS: levETIRAcetam 500 MG TAB PO SCH ×3 (09:13→21:36)
[2020-06-26] MEDS: VALSARTAN 160MG TAB PO SCH ×2 (09:14→21:34)
[2020-06-26] MEDS: FAMOTIDINE 20 MG/2 ML INJ IV SCH (09:14)
[2020-06-26] MEDS: NICOTINE 14 MG/24 HR PATCH TD SCH (09:15)
[2020-06-26] MEDS: carvediloL 12.5 MG TAB PO SCH ×2 (09:17→21:35)
--- NOTE | 2020-06-26 09:53 | Progress Note ---
Assessment and Plan Assessment and plan: Acute CVA (cerebrovascular accident) CT head results reviewed. Right arm weakness resolved Motor power in all extremities 5/5 Continue high intensity statin Neurology consult placed but will be seen tomorrow Telemetry Neurochecks MRI showed no evidence of vascular abnormality. Echo results reviewed EF greater than 55% Medical non-compliance Stressed the importance of compliance with medications Basal ganglia hemorrhage Monitor over next 24 hours Await neurology consult Neurosurgery note reviewed He has ordered CTA of head and neck No mass-effect Continue seizure prophylaxis with Keppra Hypertensive emergency Improved blood pressure at the time of my evaluation was 130/86 Continue present medications Patient has been of Cardene drip for more than 5 hours per discussion with RN Stable for transfer to telemetry floor Nicotine dependence Smoking cessation counseling was done Continue nicotine patch 06/26/2020. MRI showed no evidence of vascular abnormality. Unchanged left putaminal hemorrhage and no significant stenosis or large vessel occlusion in the intracranial arteries and no aneurysms. Await neurology consultation. History Interval history: No new issues overnight. Hospitalist Physical - Constitutional Vitals: Temp Pulse Resp BP Pulse Ox 98.9 F 72 18 139/85 95 06/26/20 05:20 06/26/20 05:20 06/26/20 05:20 06/26/20 05:20 06/26/20 08:30 General appearance: Present: no acute distress - EENT Eyes: Present: PERRL, EOM intact ENT: hearing intact, clear oral mucosa, dentition normal - Neck Neck: Present: supple, normal ROM - Respiratory Respiratory effort: normal Respiratory: bilateral: CTA - Cardiovascular Rhythm: regular Heart Sounds: Present: S1 & S2. Absent: gallop, rub - Extremities Extremities: no ischemia, No edema, Full ROM - Abdominal General gastrointestinal: soft, non-tender, non-distended, normal bowel sounds - Integumentary Integumentary: Present: clear, warm, dry - Neurologic Neurologic: CNII-XII intact, moves all extremities HEART Score - HEART Score Troponin: Troponin T < 0.010 ng/mL (0.00-0.029) 06/24/20 14:07 Results - Labs CBC & Chem 7: 06/26/20 05:05 06/26/20 05:05 Labs: Laboratory Last Values WBC 5.4 K/mm3 (4.5-11.0) 06/26/20 05:05 RBC 4.98 M/mm3 (3.65-5.03) 06/26/20 05:05 Hgb 13.3 gm/dl (11.8-15.2) 06/26/20 05:05 Hct 41.3 % (35.5-45.6) 06/26/20 05:05 MCV 83 fl (84-94) L 06/26/20 05:05 MCH 27 pg (28-32) L 06/26/20 05:05 MCHC 32 % (32-34) 06/26/20 05:05 RDW 15.0 % (13.2-15.2) 06/26/20 05:05 Plt Count 327 K/mm3 (140-440) 06/26/20 05:05 Lymph % (Auto) 42.3 % (13.4-35.0) H 06/24/20 23:41 [place] % (Auto) 6.7 % (0.0-7.3) 06/24/20 23:41 Eos % (Auto) 0.7 % (0.0-4.3) 06/24/20 23:41 Baso % (Auto) 0.4 % (0.0-1.8) 06/24/20 23:41 Lymph # (Auto) 2.4 K/mm3 (1.2-5.4) 06/24/20 23:41 [place] # (Auto) 0.4 K/mm3 (0.0-0.8) 06/24/20 23:41 Eos # (Auto) 0.0 K/mm3 (0.0-0.4) 06/24/20 23:41 Baso # (Auto) 0.0 K/mm3 (0.0-0.1) 06/24/20 23:41 Seg Neutrophils % 49.9 % (40.0-70.0) 06/24/20 23:41 Seg Neutrophils # 2.9 K/mm3 (1.8-7.7) 06/24/20 23:41 PT 12.5 Sec. (12.2-14.9) 06/24/20 14:07 INR 0.95 (0.87-1.13) 06/24/20 14:07 APTT 27.3 Sec. (24.2-36.6) 06/24/20 14:07 Thrombin Time 16.6 Sec. (15.1-19.6) 06/24/20 14:07 Sodium 138 mmol/L (137-145) 06/26/20 05:05 Potassium 4.4 mmol/L (3.6-5.0) 06/26/20 05:05 Chloride 101.8 mmol/L (98-107) 06/26/20 05:05 Carbon Dioxide 25 mmol/L (22-30) 06/26/20 05:05 Anion Gap 16 mmol/L 06/26/20 05:05 BUN 13 mg/dL (9-20) 06/26/20 05:05 Creatinine 1.3 mg/dL (0.8-1.3) 06/26/20 05:05 Estimated GFR > 60 ml/min 06/26/20 05:05 BUN/Creatinine Ratio 10 % 06/26/20 05:05 Glucose 92 mg/dL (75-100) 06/26/20 05:05 POC Glucose 97 mg/dL (70-105) 06/24/20 13:41 Hemoglobin A1c 5.3 % (4-6) 06/25/20 06:21 Calcium 9.7 mg/dL (8.4-10.2) 06/26/20 05:05 Total Bilirubin 0.40 mg/dL (0.1-1.2) 06/24/20 23:41 AST 17 units/L (5-40) 06/24/20 23:41 ALT 19 units/L (7-56) 06/24/20 23:41 Alkaline Phosphatase 37 units/L (35-129) 06/24/20 23:41 Total Creatine Kinase 248 units/L (55-170) H 06/24/20 14:07 CK-MB (CK-2) 3.4 ng/mL (0.0-4.0) 06/24/20 14:07 CK-MB (CK-2) Rel Index 1.3 (0-4) 06/24/20 14:07 Troponin T < 0.010 ng/mL (0.00-0.029) 06/24/20 14:07 Total Protein 7.6 g/dL (6.3-8.2) 06/24/20 23:41 Albumin 4.1 g/dL (3.9-5) 06/24/20 23:41 Albumin/Globulin Ratio 1.2 % 06/24/20 23:41 Triglycerides 100 mg/dL (2-149) 06/26/20 05:05 Cholesterol 220 mg/dL (50-199) H 06/26/20 05:05 LDL Cholesterol Direct 159 mg/dL (50-130) H 06/26/20 05:05 HDL Cholesterol 48 mg/dL (40-59) 06/26/20 05:05 Cholesterol/HDL Ratio 4.58 % 06/26/20 05:05 - Diagnostic Impressions Diagnostic Impressions: Echocardiogram 06/25/20 00:55 Transthoracic Echocardiogram Indication: Stroke BP: 158/88 Conclusions *The left ventricular chamber size is normal. *Mild concentric left ventricular hypertrophy is observed. *The estimated ejection fraction is 55-60%. *Abnormal left ventricular diastolic filling is observed, consistent with impaired relaxation. *The left atrium is normal in size with no visual thrombus identified. *The right ventricular chamber size and systolic function are within normal limits. *Mild aortic cusp sclerosis is present. *There is mild aortic regurgitation. *There is trace of mitral regurgitation. *There is trace tricuspid regurgitation. *The right ventricular systolic pressure is calculated at 25 mmHg. *The pericardium appears normal. *The inferior vena cava appears normal in size. *There is a greater than 50% respiratory change in the inferior vena cava dimension. *Intravenous agitated saline contrast was used to assess intracardiac shunting. Findings Procedure Info: The study quality is fair. Left Ventricle: The left ventricular chamber size is normal. Mild concentric left ventricular hypertrophy is observed. The estimated ejection fraction is 55-60%. Abnormal left ventricular diastolic filling is observed, consistent with impaired relaxation. Left Atrium: The left atrium is normal in size with no visual thrombus identified. Right Ventricle: The right ventricular chamber size and systolic function are within normal limits. Right Atrium: The right atrium appears normal. Aortic Valve: The aortic valve is trileaflet. Mild aortic cusp sclerosis is present. There is mild aortic regurgitation. There is no evidence of aortic stenosis. Mitral Valve: The mitral valve leaflets appear normal. There is trace of mitral regurgitation. There is no evidence of mitral stenosis. Tricuspid Valve: The tricuspid valve leaflets are normal. There is trace tricuspid regurgitation. The right ventricular systolic pressure is calculated at 25 mmHg. There is no tricuspid stenosis. Pulmonic Valve: The pulmonic valve is not well visualized. There is no evidence of pulmonic regurgitation. There is no pulmonic stenosis. Pericardium: The pericardium appears normal. Aorta: The aorta appears normal. Pulmonary Artery: The main pulmonary artery is not well visualized. Venous: The inferior vena cava appears normal in size. There is a greater than 50% respiratory change in the inferior vena cava dimension. Contrast: Intravenous agitated saline contrast was used to assess intracardiac shunting. Measurements Chambers 2D Name Value Normal Range IVSd (2D) 1.35 cm (0.6 - 1.1) LVPWd (2D) 1.33 cm (0.6 - 1.1) LVIDd (2D) 5.06 cm (3.7 - 5.6) LVIDs (2D) 3.42 cm (2 - 3.8) LV FS (2D) 32.32 % - EF Teichholz (2D) 60.3 % - Ao root diameter (2D) 3.28 cm (2 - 3.7) Volumes/Mass Name Value Normal Range LA ESV SP 4CH (A/L) 27.99 ml - LA ESV SP 2CH (A/L) 85.29 ml - LA ESV BP (A/L) 54.73 ml - LA ESV BP (A/L) index 21.98 ml/m2 - LA ESV SP 4CH (MOD) 28.41 ml - LA ESV SP 2CH (MOD) 83.1 ml - LA ESV BP (MOD) 53.19 ml - LA ESV BP (MOD) index 21.36 ml/m2 - LV EDV SP 4CH (MOD) 137.32 ml - LV ESV SP 4CH (MOD) 47.74 ml - EF SP 4CH (MOD) 65.24 % - LV EDV SP 2CH (MOD) 102.68 ml - LV ESV SP 2CH (MOD) 43.07 ml - EF SP 2CH (MOD) 58.05 % - LV EDV BP 118.03 ml - LV ESV BP 47.35 ml - BP EF (MOD) 59.88 % - Diastolic/Systolic Function Name Value Normal Range MV E-wave Vmax 0.47 m/sec - MV deceleration time 159.6 msec - MV A-wave Vmax 0.6 m/sec - MV E:A ratio 0.79 ratio - Aortic Valve Name Value Normal Range AV Vmax 1.35 m/sec - AV VTI 25.44 cm - AV peak gradient 7.34 mmHg - AV mean gradient 4.02 mmHg - LVOT diameter 2.19 cm - LVOT Vmax 0.95 m/sec - LVOT VTI 20.3 cm - LVOT peak gradient 3.6 mmHg - LVOT mean gradient 1.84 mmHg - SV LVOT 76.74 ml - MARY (continuity Vmax) 2.65 cm2 - MARY (continuity VTI) 3.02 cm2 - Ascending Ao 2.99 cm - Tricuspid Valve Name Value Normal Range TV E-wave Vmax 0.4 m/sec - TR Vmax 2.38 m/sec - TR peak gradient 22.63 mmHg - RAP 3 mmHg - RVSP 25 mmHg - Pulmonic Valve/Qp:Qs Name Value Normal Range PV Vmax 1.49 m/sec - PV peak gradient 8.94 mmHg - RVOT Vmax 0.62 m/sec - RVOT VTI 12.12 cm - RVOT peak gradient 1.54 mmHg - PV acceleration time 140.82 msec - Garrison/IV: Voiding Method Toilet IV Catheter Type [Right INT / Saline Lock Antecubital] Active Medications - Current Medications Current Medications: Generic Name Dose Route Start Last Admin Trade Name Freq PRN Reason Stop Dose Admin Acetaminophen 650 mg 06/25/20 00:54 Acetaminophen 325 Mg Tab PO Q4H PRN Pain, Mild (1-3) Amlodipine Besylate 10 mg 06/25/20 14:00 06/26/20 09:13 Amlodipine 10 Mg Tab PO 10 mg QDAY LEROY Administration Atorvastatin Calcium 40 mg 06/25/20 22:00 06/25/20 21:29 Atorvastatin 40 Mg Tab PO 40 mg QHS LEROY Administration Bisacodyl 10 mg 06/25/20 00:54 Bisacodyl 10 Mg Rect Supp [place] QDAY PRN Constipation Carvedilol 12.5 mg 06/25/20 14:00 06/26/20 09:17 Carvedilol 12.5 Mg Tab PO 12.5 mg BID LEROY Administration Famotidine 20 mg 06/25/20 10:00 06/26/20 09:14 Famotidine 20 Mg/2 Ml Inj IV 20 mg BID LEROY Administration Levetiracetam 500 mg 06/25/20 22:00 06/26/20 09:17 Levetiracetam 500 Mg Tab PO Not Given BID LEROY Magnesium Hydroxide 30 ml 06/25/20 00:54 Magnesium Hydroxide (Mom) Oral Liqd Udc PO Q4H PRN Constipation Morphine Sulfate 2 mg 06/24/20 23:27 Morphine 2 Mg/1 Ml Inj IV Q4H PRN Pain, Moderate (4-6) Nicotine 14 mg 06/25/20 10:00 06/26/20 09:15 Nicotine 14 Mg/24 Hr Patch TD Not Given QDAY LEROY Ondansetron HCl 4 mg 06/24/20 23:27 Ondansetron 4 Mg/2 Ml Inj IV Q8H PRN Nausea And Vomiting Oxycodone/Acetaminophen 1 tab 06/24/20 23:27 Oxycodone /Acetaminophen 5-325mg Tab PO Q6H PRN Pain, Moderate (4-6) Sodium Chloride 10 ml 06/25/20 10:00 06/26/20 09:15 Sodium Chloride 0.9% 10 Ml Flush Syringe IV 10 ml BID LREOY Administration Sodium Chloride 10 ml 06/24/20 23:27 Sodium Chloride 0.9% 10 Ml Flush Syringe IV PRN PRN LINE FLUSH Valsartan 160 mg 06/25/20 14:00 06/26/20 09:14 Valsartan 160mg Tab PO 160 mg BID LEROY Administration
--- NOTE | 2020-06-26 11:55 | Vascular Lab Report ---
VL carotid duplex BILAT INDICATION / CLINICAL INFORMATION: stroke COMPARISON: None available. FINDINGS: RIGHT CAROTID: - CCA velocity: 105 cm/sec. - ICA peak systolic velocity: 96 cm/sec. - ICA/CCA PSV Ratio: Less than 2 Right Vertebral Artery: Antegrade flow. LEFT CAROTID: - CCA velocity: 125 cm/sec. - ICA peak systolic velocity: 105 cm/sec. - ICA/CCA PSV Ratio: Less than 2 Left Vertebral Artery: Antegrade flow. IMPRESSION: 1. No occlusion or hemodynamically significant stenosis of the bilateral carotid arteries. Velocity criteria are extrapolated from diameter data as defined by the Society of Radiologists in Ul trasound Consensus Conference, Radiology 2003; 229;340-346. NO STENOSIS (NORMAL) * Plaque = none; ICA PSV < 125 cm/sec; ICA/CCA PSV Ratio < 2.0 <50% STENOSIS * Plaque < 50%; ICA PSV < 125 cm/sec; ICA/CCA PSV Ratio < 2.0 50-69% STENOSIS * Plaque > 50%; ICA PSV = 125-230 cm/sec; ICA/CCA PSV Ratio = 2.0-4.0 >70% BUT <100% STENOSIS * Plaque > 50%; ICA PSV > 230 cm/sec; ICA/CCA PSV Ratio > 4.0 NEAR OCCLUSION * Plaque = visible lumen; ICA PSV = high/low/none; ICA/CCA PSV Ratio = variable TOTAL OCCLUSION * Plaque = no lumen; ICA PSV = none; ICA/CCA PSV Ratio = N/A Signer Name: Jered Woodard MD Signed: 06/26/2020 11:51 AM Workstation Name: [id number]
--- NOTE | 2020-06-26 12:07 | Discharge Summary ---
Providers - Providers Date of Admission: 06/24/20 15:15 Date of discharge: 06/27/20 Attending physician: CAROLYN RAMIREZ 06/24/20 14:24 Consult to Physician [CONS] Urgent Comment: Dr. Yoder notified @ 14:15- [facility] Consulting Provider: CYNDI YODER II Physician Instructions: Reason For Exam: IC bleed 06/25/20 00:54 Occupational Therapy Evaluate and Treat [CONS] Routine Comment: Reason For Exam: Neuro deficits Physical Therapy Evaluation and Treat [CONS] Routine Comment: Reason For Exam: Neuro deficits 06/25/20 11:57 Consult to Physician [CONS] Routine Comment: Consulting Provider: BRAYDEN RAMÍREZ Physician Instructions: Reason For Exam: ICH Primary care physician: DIETARY SERVICE AIDE Hospitalization Reason for admission: Acute CVA Condition: Critical Hospital course: 55-year-old -Spanish male with past 5 history of hypertension and noncompliant with medication presented to the emergency room with chief complaint of mild facial droop and was dropping several things of out of the right hand. Because of suspicion of stroke, a CAT scan was done which showed a very small bleed. Patient blood pressure was also very high in the 220s by 120s. The patient was admitted with diagnosis of hemorrhagic CVA, accelerated hypertension/hypertensive emergency and patient was started on nicardipine drip. The patient was admitted to the ICU and later weaned off the drip and placed on p.o. medications. Neurosurgery saw the patient in consultation and recommended imaging to evaluate for any vascular abnormality. Patient was treated with Keppra 500 mg twice daily for seizure prophylaxis. And recommendations were for neurology consultation. The patient was also started on statin. MRI was completed and showed no evidence of vascular abnormality. Unchanged left putaminal hemorrhage and no significant stenosis or large vessel occlusion in the intracranial arteries and no aneurysms. Disposition: DC- TO HOME OR SELFCARE - Discharge Diagnoses (1) Acute CVA (cerebrovascular accident) Status: Acute (2) Basal ganglia hemorrhage Status: Acute (3) Hypertensive emergency Status: Acute (4) Medical non-compliance Status: Chronic Core Measure Documentation - Palliative Care Palliative Care/ Comfort Measures: Not Applicable - Core Measures Any of the following diagnoses?: none Exam - Constitutional Vitals: Temp Pulse Resp BP Pulse Ox 98.3 F 70 18 154/94 95 06/26/20 08:24 06/26/20 08:24 06/26/20 08:24 06/26/20 08:24 06/26/20 08:30 General appearance: Present: no acute distress, well-nourished - EENT Eyes: Present: PERRL ENT: hearing intact, clear oral mucosa - Neck Neck: Present: supple, normal ROM - Respiratory Respiratory effort: normal Respiratory: bilateral: CTA - Cardiovascular Heart Sounds: Present: S1 & S2. Absent: rub, click - Extremities Extremities: pulses symmetrical, No edema Peripheral Pulses: within normal limits - Abdominal General gastrointestinal: Present: soft, non-tender, non-distended, normal bowel sounds Male genitourinary: Present: normal - Integumentary Integumentary: Present: clear, warm, dry - Musculoskeletal Musculoskeletal: gait normal, strength equal bilaterally - Psychiatric Psychiatric: appropriate mood/affect, intact judgment & insight - Neurologic Neurologic: CNII-XII intact, moves all extremities Plan Activity: advance as tolerated Weight Bearing Status: Weight Bear as Tolerated Diet: regular Follow up with: PRIMARY CAREMD [Primary Care Provider] - 7 Days BRAYDEN RAMÍREZ MD [Staff Physician] - 7 Days CYNDI YODER II, MD [Staff Physician] - 7 Days Prescriptions: amLODIPine 10 mg PO QDAY #30 tablet carvediloL [Coreg] 12.5 mg PO BID #60 tablet Valsartan [Diovan] 160 mg PO BID #60 tablet levETIRAcetam [Keppra TAB] 500 mg PO BID #60 tablet AtorvaSTATin [Lipitor] 40 mg PO QHS #30 tablet
--- NOTE | 2020-06-26 12:37 | Consultation ---
History of Present Illness Consult date: 06/26/20 Reason for Consult: Acute ICH Chief complaint: Right arm weakness History of present illness: 55 yo male with htn presenting with acute onset of right hand weakness where he was not able to hold things properly. No associated headache, nausea, emesis, vertigo, or changes in his primary senses. Notes improvement in strength during the hospital course. Past History Past Medical History: hypertension Family history: no significant family history Medications and Allergies Allergies Allergy/AdvReac Type Severity Reaction Status Date / Time No Known Allergies Allergy Verified 06/24/20 23:42 Active Meds: Active Medications Acetaminophen (Acetaminophen 325 Mg Tab) 650 mg PO Q4H PRN PRN Reason: Pain, Mild (1-3) Amlodipine Besylate (Amlodipine 10 Mg Tab) 10 mg PO QDAY [facility] Last Admin: 06/26/20 09:13 Dose: 10 mg Documented by: Atorvastatin Calcium (Atorvastatin 40 Mg Tab) 40 mg PO QHS [facility] Last Admin: 06/25/20 21:29 Dose: 40 mg Documented by: Bisacodyl (Bisacodyl 10 Mg Rect Supp) 10 mg [place] QDAY PRN PRN Reason: Constipation Carvedilol (Carvedilol 12.5 Mg Tab) 12.5 mg PO BID [facility] Last Admin: 06/26/20 09:17 Dose: 12.5 mg Documented by: Famotidine (Famotidine 20 Mg Tab) 20 mg PO BID [facility] Levetiracetam (Levetiracetam 500 Mg Tab) 500 mg PO BID [facility] Last Admin: 06/26/20 09:17 Dose: Not Given Documented by: Magnesium Hydroxide (Magnesium Hydroxide (Mom) Oral Liqd Udc) 30 ml PO Q4H PRN PRN Reason: Constipation Morphine Sulfate (Morphine 2 Mg/1 Ml Inj) 2 mg IV Q4H PRN PRN Reason: Pain, Moderate (4-6) Nicotine (Nicotine 14 Mg/24 Hr Patch) 14 mg TD QDAY [facility] Last Admin: 06/26/20 09:15 Dose: Not Given Documented by: Ondansetron HCl (Ondansetron 4 Mg/2 Ml Inj) 4 mg IV Q8H PRN PRN Reason: Nausea And Vomiting Oxycodone/Acetaminophen (Oxycodone /Acetaminophen 5-325mg Tab) 1 tab PO Q6H PRN PRN Reason: Pain, Moderate (4-6) Sodium Chloride (Sodium Chloride 0.9% 10 Ml Flush Syringe) 10 ml IV BID [facility] Last Admin: 06/26/20 09:15 Dose: 10 ml Documented by: Sodium Chloride (Sodium Chloride 0.9% 10 Ml Flush Syringe) 10 ml IV PRN PRN PRN Reason: LINE FLUSH Valsartan (Valsartan 160mg Tab) 160 mg PO BID [facility] Last Admin: 06/26/20 09:14 Dose: 160 mg Documented by: Review of Systems All systems: negative (as per HPI;) Physical Examination - Vital Signs Vital Signs: Vital Signs Temp Pulse Resp BP Pulse Ox 98.3 F 91 H 20 175/109 95 06/24/20 13:40 06/24/20 13:40 06/24/20 13:40 06/24/20 13:40 06/24/20 13:40 - Physical Exam Narrative exam: Gen: nad, well-nourished; Head: normocephalic; Eyes: no gaze deviation; no ptosis; ENT: normal vocalization; CVS: warm and well-perfused; Pulm: no respiratory distress; GI: non-distended, protuberant; Ext: no cyanosis or edema at distal extremities; Skin: no acute rash or hives at distal extremities; Heme: no pathologic bruising or ecchymosis at distal extremities; Neuro: alert, oriented to name, age, month, year, surroundings, no dysarthria, no aphasia, CN 2 - PERRL, visual encarnacion intact, CN 3, 4, 6 - EOMI, CN 5 - facial sensation symmetric to light touch, CN 7 - facial movement symmetric except right orolabial mild droop w/ casual smile is noted, CN 8 - hearing grossly intact, CN 9, 10 - uvula midline, CN 11 - shrug symmetric, CN 12 - tongue midline; Motor - at least 4/5 in all exts w/ slight drift at all exts except L arm; Sensory - light touch symmetric, Cerebellar - fnf /hts intact, Gait - deferred secondary to fall risk; NIHSS (1a.) Level of Consciousness:0 (1b.) LOC Questions:0 (1c.) LOC Commands:0 (2.) Best Gaze:0 (3.) Visual:0 (4.) Facial Palsy:0 (5a.) Motor Arm, Left:0 (5b.) Motor Arm, Right:1 (6a.) Motor Leg, Left:1 (6b.) Motor Leg, Right:1 (7.) Limb Ataxia:0 (8.) Sensory:0 (9.) Best Language:0 (10.) Dysarthria:0 (11.) Extinction and Inattention:0 NIHSS Total Score: 3 Results - Laboratory Findings CBC and BMP: 06/26/20 05:05 06/26/20 05:05 Abnormal Lab Findings: Abnormal Labs 06/24/20 06/24/20 06/24/20 14:07 14:07 14:14 MCV 82 L MCH 27 L Lymph % (Auto) 39.1 H Sodium Glucose 102 H Total Creatine Kinase 248 H Cholesterol LDL Cholesterol Direct 06/24/20 06/24/20 06/26/20 23:41 23:41 05:05 MCV 82 L MCH 27 L Lymph % (Auto) 42.3 H Sodium 135 L Glucose Total Creatine Kinase Cholesterol 220 H LDL Cholesterol Direct 159 H 06/26/20 05:05 MCV 83 L MCH 27 L Lymph % (Auto) Sodium Glucose Total Creatine Kinase Cholesterol LDL Cholesterol Direct Assessment and Plan 55 yo male with htn, tobacco abuse p/w an acute left putaminal ich. 1. Acute ICH - keep SBP < 140 mmHg; pt/ptt/platelets normalized; avoid blood thinners. 2. Right arm weakness - pt/ot evaluation/monitoring. 3. Tobacco abuse - outpatient smoking cessation program via pcp. Blane Watts MD Neurology
[2020-06-26] MEDS: FAMOTIDINE 20 MG TAB PO SCH (21:34)
[2020-06-27 08:07] VITALS: BP 166/91
[2020-06-27] MEDS: VALSARTAN 160MG TAB PO SCH (09:49)
[2020-06-27] MEDS: amLODIPine 10 MG TAB PO SCH (09:49)
[2020-06-27] MEDS: levETIRAcetam 500 MG TAB PO SCH (09:49)
[2020-06-27] MEDS: carvediloL 12.5 MG TAB PO SCH (09:49)
[2020-06-27] MEDS: NICOTINE 14 MG/24 HR PATCH TD SCH (09:49)
[2020-06-27] MEDS: FAMOTIDINE 20 MG TAB PO SCH (09:49)
== END 2020-06-27 11:39 | disposition home or self-care (01) | DRG 65 ==
LOC: ED 13:27 → CC1 15:15 → 4A 06-25 12:21
PROVIDERS: ADMIT Internal Medicine; ATTEND Hospitalist
DX: I61.0 Nontraumatic intracerebral hemorrhage in hemisphere, subcortical (principal); I16.1 Hypertensive emergency; R29.898 Other symptoms and signs involving the musculoskeletal system; R29.701 NIHSS score 1; F17.200 Nicotine dependence, unspecified, uncomplicated; Z91.19 Patient's noncompliance with other medical treatment and regimen; Z71.6 Tobacco abuse counseling
CPT/HCPCS: 36415; 70450; 70544; 70551; 71045; 80048; 80053; 80061; 82550; 82553; 82962; 83036; 84484; 85025; 85027; 85610; 85670; 85730; 93005; 93306; 93880; G0378; A9270-GY; J1953